=== PATIENT | male | born 1995 | race Caucasian/White ===

== ENCOUNTER 2017-03-28 19:56 | Outpatient (CLI) | payer OTHER | END 2017-03-28 19:57 | disposition critical access hospital (66) | LOC: EMS 19:56 | PROVIDERS: ATTEND Surgery | DX: M25.512 Pain in left shoulder (principal); V28.4XXA Motorcycle driver injured in noncollision transport accident in traffic accident, initial encounter; Y92.410 Unspecified street and highway as the place of occurrence of the external cause | CPT/HCPCS: A0425; A0429 ==

== ENCOUNTER 2017-03-28 20:23 | Emergency (ER) | payer OTHER ==
[2017-03-28] MEDS ORDERED: BACITRACIN OINT TOP STA (21:06)
[2017-03-28] MEDS ORDERED: IBUPROFEN 800 MG TABLET PO STA (21:07)
[2017-03-28] MEDS ORDERED: TETANUS/DIPHTHERIA/PERTUSSIS 0.5 ML SYRINGE IM ONE ×2 (21:09→21:24)
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
[2017-03-28] MEDS ORDERED: IBUPROFEN 800 MG TABLET PO ONE (21:23)
[2017-03-28 21:37] VITALS: BP 139/98
== END 2017-03-28 22:30 | disposition home or self-care (01) ==
LOC: EDUNIT# → ED 20:23
DX: S40.012A Contusion of left shoulder, initial encounter (principal); S80.212A Abrasion, left knee, initial encounter; S80.211A Abrasion, right knee, initial encounter; V27.0XXA Motorcycle driver injured in collision with fixed or stationary object in nontraffic accident, initial encounter; R03.0 Elevated blood-pressure reading, without diagnosis of hypertension
CPT/HCPCS: 90471; 90715; 99283; 99284; A9270; 96372

== ENCOUNTER 2018-08-03 15:48 | Emergency (ER) | payer OTHER ==
--- NOTE | 2018-08-03 17:18 | ED Physician Documentation ---
PD HPI UPPER EXT INJURY - Stated complaint Stated Complaint: FINGER LAC - Chief complaint Chief Complaint: Laceration - History obtained from History obtained from: Patient - History of Present Illness Location: Right, Finger (ring) Type of injury: Laceration Where injury occurred: Work Timing - onset: How many hours ago (2) - Additonal information Additional information: The patient is a 23-year-old right-hand dominant male who cut his right ring finger on the edge of a cylinder while working on an engine block about 2 hours prior to arrival. He denies any other injuries. Review of his medical records reveals that his tetanus status is up-to-date, having received a tetanus booster in 2017. Review of Systems Constitutional: denies: Fever Musculoskeletal: reports: Extremity pain (Right ring finger.) Neurologic: denies: Focal weakness, Numbness PD PAST MEDICAL HISTORY - Past Medical History Endocrine/Autoimmune: None - Past Surgical History Past Surgical History: No - Present Medications Home Medications: Ambulatory Orders Medication Instructions Recorded Confirmed No Known Home Medications 03/28/17 03/28/17 - Allergies Allergies/Adverse Reactions: Allergies Allergy/AdvReac Type Severity Reaction Status Date / Time No Known Drug Allergies Allergy Verified 08/03/18 16:03 - Social History Does the pt smoke?: No Smoking Status: Never smoker Does the pt drink ETOH?: No Does the pt have substance abuse?: No - Immunizations Immunizations are current?: Yes PD ED PE NORMAL - Vitals Vital signs reviewed: Yes (normal) - General General: Alert and oriented X 3, Well developed/nourished - HEENT HEENT: Atraumatic - Respiratory Respiratory: No respiratory distress - Derm Derm: No rash - Extremities Extremities: Other (There is a 1/2 cm laceration on the dorsal lateral aspect of the right ring finger at the level of the PIP joint. He has full flexion and extension at the DIP, PIP, and MCP joints, against resistance. Distal neurovascular is intact.) - Neuro Neuro: Alert and oriented X 3, No motor deficit, No sensory deficit Results - Vitals Vitals: Oxygen O2 Source Room air Procedures - Laceration (location) right ring finger Length in cm: 0.5 Wound type: Linear, Into subcut fat Neurovascular status: Sensory intact, Motor intact, Vascular intact Tendon involvement: Tendon intact Anesthesia: Lidocaine 1% with epi Wound Preparation: Hibiclens, Irrigated copiously NS, Wound explored, To the base. No: FB identified Skin layer closure: Nylon, Interrupted, Size #-0 - enter number (2), Sutures - enter # (2) Other: Patient tolerated well, No complications, Neurovascular intact, Dressing applied, Tetanus UTD Complexity: Simple PD MEDICAL DECISION MAKING - ED course Complexity details: re-evaluated patient, considered differential, d/w patient, other (L&I form was completed.) ED course: The patient's presentation is significant for laceration of the right ring finger. There is no evidence of tendon, arterial, or nerve involvement. Treatment in the emergency department included thorough cleaning of the wound and suture repair, after local anesthetic with lidocaine with epinephrine. Wound dressing was applied. I discussed with him the expected course of healing, appropriate wound care in timing for suture removal, as well as potentially worrisome signs or symptoms that should prompt reevaluation in the emergency department. Departure - Departure Disposition: 01 Home, Self Care Clinical Impression: Finger laceration Qualifiers: Encounter type: initial encounter Finger: ring finger Damage to nail status: without damage Foreign body presence: without foreign body Laterality: right Qualified Code(s): S61.214A - Laceration without foreign body of right ring finger without damage to nail, initial encounter Condition: Stable Instructions: ED Laceration Hand Comments: Keep the wound clean. Apply antibiotic ointment twice daily. Follow-up for suture removal in about 10 days. Return to the emergency department sooner if you develop any sign of infection, or otherwise worsening symptoms. Discharge Date/Time: 08/03/18 17:27
[2018-08-03 17:26] VITALS: BP 121/54
== END 2018-08-03 17:27 | disposition home or self-care (01) ==
LOC: ED 15:48
DX: S61.214A Laceration without foreign body of right ring finger without damage to nail, initial encounter (principal); W45.8XXA Other foreign body or object entering through skin, initial encounter; Y99.0 Civilian activity done for income or pay
CPT/HCPCS: 12001; 99282; 99283

== ENCOUNTER 2018-08-22 18:22 | Emergency (ER) | payer OTHER ==
--- NOTE | 2018-08-22 20:57 | ED Physician Documentation ---
PD HPI WOUND RECHECK - Stated complaint Stated Complaint: RIGHT HAND RING FINGER - Chief complaint Chief Complaint: General - Histroy obtained from History obtained from: Patient - History of Present Illness Location: Right Hand (he had lac of ring finger sutures and sutures removed without problems. Healing well without limit on ROM. He was at employee physical for [employer] and nurse said she needed a note releasing him to fulll use of the hand. He did not have other option to be able to do this to start work other than coming to ER for recheck.) Associated symptoms: No: Redness, Swelling, Drainage Recently seen: Emergency Dept (had wound sutured and then suture removal without problems; injury about a month ago.) Review of Systems Neurologic: denies: Focal weakness, Numbness PD PAST MEDICAL HISTORY - Past Medical History Past Medical History: No Endocrine/Autoimmune: None - Past Surgical History Past Surgical History: No - Present Medications Home Medications: Ambulatory Orders Medication Instructions Recorded Confirmed No Known Home Medications 03/28/17 08/22/18 - Allergies Allergies/Adverse Reactions: Allergies Allergy/AdvReac Type Severity Reaction Status Date / Time No Known Drug Allergies Allergy Verified 08/22/18 18:34 - Social History Does the pt smoke?: No Smoking Status: Never smoker Does the pt drink ETOH?: No Does the pt have substance abuse?: No - Immunizations Immunizations are current?: Yes PD ED PE NORMAL - Vitals Vital signs reviewed: Yes - General General: Alert and oriented X 3, No acute distress, Well developed/nourished - Derm Derm: Normal color, Warm and dry - Extremities Extremities: Other (right ring finger with healed wound dorsal aspect. Mild thickening of skin due to scar tissue. full strength on extension and full flexion/hand coper. No signs of infection. Normal sensation in finger. 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 He had no other option for this than recheck here.), d/w patient Departure - Departure Disposition: 01 Home, Self Care Clinical Impression: Encounter for wound re-check Condition: Stable Record reviewed to determine appropriate education?: Yes Comments: The wound appears well-healed and you have great functions are no limitations are needed. Forms: Activity restrictions Discharge Date/Time: 08/22/18 21:15
[2018-08-22 21:09] VITALS: BP 130/86
== END 2018-08-22 21:15 | disposition home or self-care (01) ==
LOC: ED 18:22
DX: S61.212D Laceration without foreign body of right middle finger without damage to nail, subsequent encounter (principal); X58.XXXD Exposure to other specified factors, subsequent encounter
CPT/HCPCS: 99281; 99283